=== PATIENT | male | born 1980 | race Caucasian/White ===

== ENCOUNTER 2017-03-18 00:43 | Emergency (ER) | payer BC, OTHER ==
[2017-03-18 01:01] VITALS: BP 228/128
[2017-03-18] MEDS ORDERED: Ondansetron 4 MG/2 ML SDV IVPUSH ONE ×3 (01:15→05:26)
[2017-03-18] MEDS ORDERED: Sodium Chloride 0.9% 1,000 ML IV SCH ×2 (01:15→03:45)
[2017-03-18] MEDS ORDERED: HYDROmorphone 1 MG/ML Syringe IVPUSH ONE ×2 (01:15→03:36)
[2017-03-18] MEDS ORDERED: Ondansetron 4 MG/2 ML SDV ONE (02:33)
--- NOTE | 2017-03-18 03:55 | EDM.PDOC ---
ED HPI GENERAL MEDICAL PROBLEM - General Chief Complaint: Abdominal Pain Stated Complaint: VOMITING/FEVER Time Seen by Provider: 03/18/17 00:45 Source of Information: Reports: Patient History Limitations: Reports: No Limitations - History of Present Illness INITIAL COMMENTS - FREE TEXT/NARRATIVE: This is a 36-year-old male. He comes tonight because he has been vomiting and having abdominal pain. It started Sunday morning around 7 AM. He has pain in his upper belly that radiates to his back. He has a history of pancreatitis though he denies drinking any alcohol for years. He is also states he is an insulin-dependent diabetic but has not been on his insulin for some time. He does not even know the dose of his insulin. When he arrives to the ER he is pale and slightly diaphoretic but able to function complaining of upper abdominal pain mostly. He denies any diarrhea he denies any fever or chills and denies any cough. Patient has not checked his blood sugar recently. Upon arrival a fingerstick showed a glucose of 231. Abdomen Pain Score (Numeric/FACES): 9 - Related Data Allergies Allergy/AdvReac Type Severity Reaction Status Date / Time No Known Allergies Allergy Verified 03/18/17 01:03 Home Meds: Home Meds Ondansetron [Zofran ODT] 4 mg PO Q6H PRN #12 tab.dis 03/18/17 [Rx] metFORMIN [Glucophage XR] 500 mg PO BIDMEALS #120 tab.er 03/18/17 [Rx] oxyCODONE HCl/Acetaminophen [Percocet 5-325 mg Tablet] 1 each PO Q6H PRN #15 tablet 03/18/17 [Rx] Past Medical History Gastrointestinal History: Reports: Diverticulosis, Pancreatitis Endocrine/Metabolic History: Reports: IDDM ED ROS GENERAL - Review of Systems Review Of Systems: See Below Constitutional: Reports: Malaise. Denies: Fever, Chills HEENT: Reports: No Symptoms Respiratory: Reports: No Symptoms Cardiovascular: Reports: No Symptoms Endocrine: Reports: High Glucose GI/Abdominal: Reports: Abdominal Pain, Anorexia, Nausea, Vomiting. Denies: Diarrhea : Reports: No Symptoms Musculoskeletal: Reports: No Symptoms Skin: Reports: No Symptoms Neurological: Reports: No Symptoms Psychiatric: Reports: No Symptoms Hematologic/Lymphatic: Reports: No Symptoms ED EXAM, GI/ABD - Physical Exam Exam: See Below Exam Limited By: No Limitations General Appearance: Alert, WD/WN, Mild Distress Eyes: Bilateral: Normal Appearance Ears: Normal External Exam, Normal Canal, Normal TMs Nose: Normal Inspection Throat/Mouth: Normal Lips, Normal Voice, No Airway Compromise Head: Normocephalic Neck: Supple Respiratory/Chest: No Respiratory Distress, Lungs Clear, Normal Breath Sounds Cardiovascular: Regular Rate, Rhythm, No Murmur, Tachycardia GI/Abdominal Exam: Soft, Other (Bowel sounds are decreased he's very tender in the upper abdomen across the upper area of the lower abdomen has minimal tenderness bowel sounds are quiet) Back Exam: Full Range of Motion Extremities: Normal Inspection, Normal Range of Motion Neurological: Alert, Oriented Psychiatric: Anxious Skin Exam: Cool, Diaphoretic Course - Vital Signs Last Recorded V/S: Last Vital Signs Temp 96.6 F 03/18/17 00:56 Pulse 104 H 03/18/17 00:56 Resp 16 03/18/17 00:56 BP 228/128 H 03/18/17 00:56 Pulse Ox 98 03/18/17 00:56 - Orders/Labs/Meds Orders: Active Orders 24 hr Category Date Time Status Sodium Chloride 0.9% [Normal Saline] 1,000 ml Med 03/18/17 01:15 Active IV ASDIRECTED Sodium Chloride 0.9% [Normal Saline] 1,000 ml Med 03/18/17 03:45 Active IV ASDIRECTED Medication Orders Sodium Chloride (Normal Saline) 1,000 mls @ 1,000 mls/hr IV ASDIRECTED SASHA Last Admin: 03/18/17 01:36 Dose: 1,000 mls/hr Sodium Chloride (Normal Saline) 1,000 mls @ 1,000 mls/hr IV ASDIRECTED SASHA Last Admin: 03/18/17 03:42 Dose: 1,000 mls/hr Labs: Laboratory Tests 03/18/17 03/18/17 03/18/17 Range/Units 01:06 01:10 01:10 WBC 9.79 H (4.23-9.07) K/mm3 RBC 3.70 L (4.63-6.08) M/mm3 Hgb 11.0 L (13.7-17.5) gm/L Hct 32.7 L (40.1-51.0) % MCV 88.4 (79.0-92.2) fl MCH 29.7 (25.7-32.2) pg MCHC 33.6 (32.2-35.5) g/dl RDW Std Deviation 39.0 (35.1-43.9) fL Plt Count 184 (163-337) K/mm3 MPV 10.8 (9.4-12.3) fl Neut % (Auto) 78.2 H (34.0-67.9) % Lymph % (Auto) 14.0 L (21.8-53.1) % [place] % (Auto) 6.3 (5.3-12.2) % Eos % (Auto) 0.6 L (0.8-7.0) Baso % (Auto) 0.3 (0.1-1.2) % Neut # (Auto) 7.65 H (1.78-5.38) K/mm3 Lymph # (Auto) 1.37 (1.32-3.57) K/mm3 [place] # (Auto) 0.62 (0.30-0.82) K/mm3 Eos # (Auto) 0.06 (0.04-0.54) K/mm3 Baso # (Auto) 0.03 (0.01-0.08) K/mm3 Sodium (136-145) mEq/L Potassium (3.5-5.1) mEq/L Chloride (98-107) mEq/L Carbon Dioxide (21-32) mEq/L Anion Gap (5-15) BUN (7-18) mg/dL Creatinine (0.7-1.3) mg/dL Est Cr Clr Drug Dosing mL/min Estimated GFR (MDRD) (>60) mL/min BUN/Creatinine Ratio (14-18) Glucose (74-106) mg/dL POC Glucose 231 H (70-105) mg/dL Calcium (8.5-10.1) mg/dL Total Bilirubin (0.2-1.0) mg/dL AST (15-37) U/L ALT (16-63) U/L Alkaline Phosphatase (46-116) U/L Troponin I (0.00-0.056) ng/mL Total Protein (6.4-8.2) g/dl Albumin (3.4-5.0) g/dl Globulin gm/dL Albumin/Globulin Ratio (1-2) Amylase (25-115) U/L Lipase (73-393) U/L Urine Color Yellow (Yellow) Urine Appearance Clear (Clear) Urine pH 6.5 (5.0-8.0) Ur Specific [place] 1.025 (1.005-1.030) Urine Protein 3+ H (Negative) Urine Glucose (UA) Negative (Negative) Urine Ketones Negative (Negative) Urine Occult Blood 3+ H (Negative) Urine Nitrite Negative (Negative) Urine Bilirubin Negative (Negative) Urine Urobilinogen 0.2 (0.2-1.0) Ur Leukocyte Esterase Negative (Negative) Urine RBC 50-75 H (0-5) /hpf Urine WBC 0-5 (0-5) /hpf Ur Epithelial Cells Not seen (0-5) /hpf Urine Bacteria Few (FEW) /hpf Urine Mucus Not seen (FEW) /hpf 03/18/17 Range/Units 01:10 WBC (4.23-9.07) K/mm3 RBC (4.63-6.08) M/mm3 Hgb (13.7-17.5) gm/L Hct (40.1-51.0) % MCV (79.0-92.2) fl MCH (25.7-32.2) pg MCHC (32.2-35.5) g/dl RDW Std Deviation (35.1-43.9) fL Plt Count (163-337) K/mm3 MPV (9.4-12.3) fl Neut % (Auto) (34.0-67.9) % Lymph % (Auto) (21.8-53.1) % [place] % (Auto) (5.3-12.2) % Eos % (Auto) (0.8-7.0) Baso % (Auto) (0.1-1.2) % Neut # (Auto) (1.78-5.38) K/mm3 Lymph # (Auto) (1.32-3.57) K/mm3 [place] # (Auto) (0.30-0.82) K/mm3 Eos # (Auto) (0.04-0.54) K/mm3 Baso # (Auto) (0.01-0.08) K/mm3 Sodium 144 (136-145) mEq/L Potassium 4.5 (3.5-5.1) mEq/L Chloride 109 H (98-107) mEq/L Carbon Dioxide 25 (21-32) mEq/L Anion Gap 14.5 (5-15) BUN 26 H (7-18) mg/dL Creatinine 2.0 H (0.7-1.3) mg/dL Est Cr Clr Drug Dosing 46.75 mL/min Estimated GFR (MDRD) 38 (>60) mL/min BUN/Creatinine Ratio 13.0 L (14-18) Glucose 236 H (74-106) mg/dL POC Glucose (70-105) mg/dL Calcium 9.2 (8.5-10.1) mg/dL Total Bilirubin 0.3 (0.2-1.0) mg/dL AST 26 (15-37) U/L ALT 46 (16-63) U/L Alkaline Phosphatase 136 H (46-116) U/L Troponin I < 0.017 (0.00-0.056) ng/mL Total Protein 7.5 (6.4-8.2) g/dl Albumin 3.6 (3.4-5.0) g/dl Globulin 3.9 gm/dL Albumin/Globulin Ratio 0.9 L (1-2) Amylase 82 (25-115) U/L Lipase 1085 H (73-393) U/L Urine Color (Yellow) Urine Appearance (Clear) Urine pH (5.0-8.0) Ur Specific [place] (1.005-1.030) Urine Protein (Negative) Urine Glucose (UA) (Negative) Urine Ketones (Negative) Urine Occult Blood (Negative) Urine Nitrite (Negative) Urine Bilirubin (Negative) Urine Urobilinogen (0.2-1.0) Ur Leukocyte Esterase (Negative) Urine RBC (0-5) /hpf Urine WBC (0-5) /hpf Ur Epithelial Cells (0-5) /hpf Urine Bacteria (FEW) /hpf Urine Mucus (FEW) /hpf Meds: Medications Generic Name Dose Route Start Last Admin Trade Name Freq PRN Reason Stop Dose Admin Sodium Chloride 1,000 mls @ 1,000 mls/hr 03/18/17 01:15 03/18/17 01:36 Normal Saline IV 1,000 mls/hr ASDIRECTED SASHA Administration Sodium Chloride 1,000 mls @ 1,000 mls/hr 03/18/17 03:45 03/18/17 03:42 Normal Saline IV 1,000 mls/hr ASDIRECTED SASHA Administration Discontinued Medications Generic Name Dose Route Start Last Admin Trade Name Adam PRN Reason Stop Dose Admin Hydromorphone HCl 1 mg 03/18/17 01:15 03/18/17 01:36 Dilaudid IVPUSH 03/18/17 01:16 1 mg ONETIME ONE Administration Hydromorphone HCl 1 mg 03/18/17 03:36 03/18/17 03:42 Dilaudid IVPUSH 03/18/17 03:37 1 mg ONETIME ONE Administration Ondansetron HCl 4 mg 03/18/17 01:15 03/18/17 01:36 Zofran IVPUSH 03/18/17 01:16 4 mg ONETIME ONE Administration Ondansetron HCl Confirm 03/18/17 02:33 03/18/17 04:56 Zofran Administered 03/18/17 02:34 Not Given Dose 4 mg .ROUTE .STK-MED ONE Ondansetron HCl 4 mg 03/18/17 04:55 03/18/17 02:31 Zofran IVPUSH 03/18/17 04:56 4 mg ONETIME ONE Administration - Re-Assessments/Exams Free Text/Narrative Re-Assessment/Exam: 03/18/17 05:10 After 2 L of fluids the patient is feeling better much of his abdominal tenderness is resolved and his nausea has resolved. I spoke to him regarding the blood work and his mild pancreatitis. He feels he can treat this at home and I explained to him the process of bowel rest with fluids only for the next 3 -4 days. He also knows that if his vomiting returns and his pain returns he needs to return to the ER. He is not taking his insulin and his blood sugars are not very high in the ER and offered to put him on some metformin 500 mg twice a day until he can follow up with the doctor to get him on some more appropriate medications since he doesn't use the insulin. He agrees to this. Departure - Departure Time of Disposition: 05:11 Disposition: Home, Self-Care 01 Condition: Fair Clinical Impression: Abdominal pain Qualifiers: Abdominal location: upper abdomen, unspecified Qualified Code(s): R10.10 - Upper abdominal pain, unspecified Nausea and vomiting Qualifiers: Vomiting type: unspecified Vomiting Intractability: non-intractable Qualified Code(s): R11.2 - Nausea with vomiting, unspecified Pancreatitis Qualifiers: Chronicity: acute Pancreatitis type: unspecified pancreatitis type Acute pancreatitis complication: unspecified Qualified Code(s): K85.90 - Acute pancreatitis without necrosis or infection, unspecified Diabetes mellitus Qualifiers: Diabetes mellitus type: other specified (including ASIF) Diabetes mellitus complication status: without complication Diabetes mellitus jail insulin use: without jail use Qualified Code(s): E13.9 - Other specified diabetes mellitus without complications - Discharge Information Prescriptions: metFORMIN [Glucophage XR] 500 mg PO BIDMEALS #120 tab.er Ondansetron [Zofran ODT] 4 mg PO Q6H PRN #12 tab.dis PRN Reason: Nausea oxyCODONE HCl/Acetaminophen [Percocet 5-325 mg Tablet] 1 each PO Q6H PRN #15 tablet PRN Reason: Pain Instructions: Abdominal Pain, Adult, [id number] Referrals: PCP,None [Primary Care Provider] - Forms: ED Department Discharge Additional Instructions: You need to have bowel rest which means liquids only with no calories, water is the best, once your stomach begins to feel better you may start the metformin with 1 tablet twice a day for one week and then increase it to 2 tablets twice a day, if you develop belly cramps or diarrhea with the increased dose then back off to just 1 tablet twice a day, if your abdominal pain and mild pancreatitis worsen with nausea and vomiting and pain and you are unable to keep anything down return to the ER for reevaluation, follow-up with your family doctor this week for recheck - My Orders Last 24 Hours: My Active Orders 03/18/17 01:15 Sodium Chloride 0.9% [Normal Saline] 1,000 ml IV ASDIRECTED 03/18/17 03:45 Sodium Chloride 0.9% [Normal Saline] 1,000 ml IV ASDIRECTED - Assessment/Plan Last 24 Hours: My Active Orders 03/18/17 01:15 Sodium Chloride 0.9% [Normal Saline] 1,000 ml IV ASDIRECTED 03/18/17 03:45 Sodium Chloride 0.9% [Normal Saline] 1,000 ml IV ASDIRECTED
[2017-03-18] MEDS ORDERED: Ondansetron 4 MG Tab.DIS ONE (05:35)
== END 2017-03-18 05:40 | disposition home or self-care (01) ==
LOC: JD.ED 00:43
DX: K85.90 Acute pancreatitis without necrosis or infection, unspecified (principal); E13.9 Other specified diabetes mellitus without complications; Z79.84 Long term (current) use of oral hypoglycemic drugs
CPT/HCPCS: 36415; 80053; 81001; 82150; 82962; 83690; 84484; 85025; 96361; 96374; 96375; 96376; 99284; J1170; J2405; J7040